=== PATIENT | female | born 2000 | race African-American/Black ===

== ENCOUNTER 2023-05-19 21:57 | Emergency (ER) | payer OTHER ==
[2023-05-19 22:07] VITALS: BP 125/81; PULSE 102; RESP 17; TEMP 98.1; BMI 33.3
[2023-05-19] MEDS ORDERED: PSEUDOEPHEDRINE HCL 30 MG TABLET PO ONE ×2 (22:20→22:25)
[2023-05-19] MEDS ORDERED: PSEUDOEPHEDRINE HCL 60 MG TABLET ONE (22:24)
== END 2023-05-19 23:12 | disposition home or self-care (01) ==
LOC: JER 21:57
DX: R09.81 Nasal congestion (principal); U07.1 COVID-19
CPT/HCPCS: 0241U-QW; 99283-25